=== PATIENT | female | born 1945 | race Caucasian/White ===

== ENCOUNTER → 2020-03-27 | Outpatient (CLI) | payer MEDICARE ==
[~2020-03-27] MED LIST: ASPI81TA45 PO; CALC1CAP8 PO; CHOL10003 PO; DIPH25CA61 PO; ESTR1VAG VG; IPRA15SP NAS; MAGN400T36 PO; MILK150C2 PO; MULT-516 PO; TURMERIC CURCUMIN PO; UBID60CA4 PO
== END | disposition home or self-care (01) ==
LOC: STAR 12:11
PROVIDERS: ATTEND Obstetrics & Gynecology Female Pelvic Medicine and Reconstructive Surgery
DX: Z01.818 Encounter for other preprocedural examination (principal); N81.2 Incomplete uterovaginal prolapse; N39.3 Stress incontinence (female) (male); R10.2 Pelvic and perineal pain
CPT/HCPCS: 93005

== ENCOUNTER 2020-04-03 11:16 | Outpatient (CLI) | payer MEDICARE | END 2020-04-03 23:59 | disposition home or self-care (01) | LOC: STAR 11:16 | PROVIDERS: ATTEND Anesthesiology | DX: Z01.812 Encounter for preprocedural laboratory examination (principal); Z20.828 Contact with and (suspected) exposure to other viral communicable diseases | CPT/HCPCS: 36415; 87635 ==

== ENCOUNTER 2020-04-07 09:28 | Day surgery (SDC) | payer MEDICARE ==
[~2020-04-07] VITALS: Ht 160 cm; Wt 48.0 kg
[~2020-04-07 09:28] MED LIST changes: +BUPIVACAINE/PF 0.25% ONE; +NEOMY/POLYMYXIN B GU IRR. 1 ML ONE
[2020-04-07] MEDS ORDERED: CHLORHEXIDINE 15 ML UDC MM STA (09:35)
[2020-04-07] MEDS ORDERED: CHLORHEXIDINE 15 ML UDC ONE (09:43)
[2020-04-07] MEDS ORDERED: LACTATED RINGERS 1,000 ML IV SCH (10:00)
[2020-04-07] MEDS ORDERED: FENTANYL PF 250 MCG/5ML ONE (11:46)
[2020-04-07] MEDS ORDERED: MIDAZOLAM 1 MG/ML, 2ML ONE (11:46)
[2020-04-07] MEDS ORDERED: DEXAMETHASONE 4 MG/ML, 1ML ONE (11:47)
[2020-04-07] MEDS ORDERED: PROPOFOL 10 MG/ML, 20ML ONE (11:47)
[2020-04-07] MEDS ORDERED: CEFAZOLIN 1,000 MG ONE (11:47)
[2020-04-07] MEDS ORDERED: SUCCINYLCHOLINE 20 MG/ML, 10ML ONE (11:47)
[2020-04-07] MEDS ORDERED: ROCURONIUM 10 MG/ML,10ML ONE (11:54)
[2020-04-07] MEDS ORDERED: ACETAMINOPHEN 500 MG TABLET PO ONE (12:00)
[2020-04-07] MEDS ORDERED: EPHEDRINE 50 MG/ML, 1ML ONE (12:11)
[2020-04-07] MEDS ORDERED: MIDAZOLAM 1 MG/ML, 2ML IV PRN (12:30)
[2020-04-07] MEDS ORDERED: ONDANSETRON 2MG/ML, 2ML IVPush PRN (12:30)
[2020-04-07] MEDS ORDERED: OXYcodone 5 MG/5 ML ORAL.SOL UDC PO PRN (12:30)
[2020-04-07] MEDS ORDERED: hydrALAzine 20 MG/ML, 1ML IV PRN (12:30)
[2020-04-07] MEDS ORDERED: PROMETHAZINE 25 MG/ML, 1ML IVPush PRN (12:30)
[2020-04-07] MEDS ORDERED: DIPHENHYDRAMINE 50 MG/ML, 1ML IVPush PRN (12:30)
[2020-04-07] MEDS ORDERED: DIAZEPAM 5 MG/ML, 2ML IVPush PRN (12:30)
[2020-04-07] MEDS ORDERED: LABETALOL 5MG/ML, 20ML IV PRN (12:30)
[2020-04-07] MEDS ORDERED: FENTANYL PF 100 MCG/2ML IV PRN (12:30)
[2020-04-07] MEDS ORDERED: EPHEDRINE 50 MG/ML, 1ML IVPush PRN (12:30)
[2020-04-07] MEDS ORDERED: ALBUTEROL SULFATE 2.5 MG/3 ML NPPB PRN (12:30)
[2020-04-07] MEDS ORDERED: PROMETHAZINE 12.5 MG SUPP PR PRN (12:30)
[2020-04-07] MEDS ORDERED: HYDROmorphone 1 MG/ML, 1ML INJ IVPush PRN (12:30)
[2020-04-07] MEDS ORDERED: MEPERIDINE/PF 25MG/0.5ML IVPush PRN (12:30)
[2020-04-07] MEDS ORDERED: ONDANSETRON 2MG/ML, 2ML ONE (13:23)
[2020-04-07] MEDS ORDERED: SUGAMMADEX 200 MG/2 ML IVPush ONE (13:23)
[2020-04-07] MEDS ORDERED: OXYcodone 5 MG/5 ML ORAL.SOL UDC ONE (14:07)
[2020-04-07] MEDS ORDERED: FENTANYL PF 100 MCG/2ML ONE (14:07)
== END 2020-04-07 15:40 | disposition home or self-care (01) ==
LOC: OUT 09:28
PROVIDERS: ATTEND Obstetrics & Gynecology Female Pelvic Medicine and Reconstructive Surgery
DX: N81.2 Incomplete uterovaginal prolapse (principal); N39.46 Mixed incontinence; N83.291 Other ovarian cyst, right side; R10.2 Pelvic and perineal pain; G43.909 Migraine, unspecified, not intractable, without status migrainosus; Z79.899 Other long term (current) drug therapy; Z98.51 Tubal ligation status; Z98.890 Other specified postprocedural states
CPT/HCPCS: 57265; 57282; 57288; 58552; 88307; C1771; J0330; J0690; J1100; J2250; J2405; J2704; J3010; J3490; J7120

== ENCOUNTER → 2020-11-11 | Outpatient (CLI) | payer MEDICARE ==
[~2020-11-11] MED LIST changes: -BUPIVACAINE/PF 0.25% ONE; -NEOMY/POLYMYXIN B GU IRR. 1 ML ONE; +PSYL0.527 PO
== END | disposition home or self-care (01) ==
LOC: STAR 10:04
PROVIDERS: ATTEND Obstetrics & Gynecology Female Pelvic Medicine and Reconstructive Surgery
DX: Z01.812 Encounter for preprocedural laboratory examination (principal); Z20.822 Contact with and (suspected) exposure to COVID-19; R10.2 Pelvic and perineal pain; N81.10 Cystocele, unspecified; N81.6 Rectocele; N39.3 Stress incontinence (female) (male)
CPT/HCPCS: 93005; U0003; U0005

== ENCOUNTER 2020-11-17 07:28 | Day surgery (SDC) | payer MEDICARE ==
[~2020-11-17] VITALS: Ht 160 cm; Wt 48.8 kg
[~2020-11-17 07:28] MED LIST changes: +BUPIVACAINE/PF 0.25% ONE; +EPINEPHRINE 1 MG/ML, 1ML ONE; +GENTAMICIN 80 MG/2 ML ONE; +VANCOMYCIN 500 MG ONE
[2020-11-17] MEDS ORDERED: CHLORHEXIDINE 15 ML UDC PO ONE (08:00)
[2020-11-17] MEDS ORDERED: LACTATED RINGERS 1,000 ML IV SCH (08:00)
[2020-11-17] MEDS ORDERED: DIPHENHYDRAMINE 50 MG/ML, 1ML ONE (08:03)
[2020-11-17] MEDS ORDERED: FENTANYL PF 250 MCG/5ML ONE (08:04)
[2020-11-17 08:06] VITALS: BP 109/69
[2020-11-17] MEDS ORDERED: CHLORHEXIDINE 15 ML UDC ONE (08:07)
[2020-11-17] MEDS ORDERED: NEOSTIGMINE 1 MG/ML, 10ML ONE (09:36)
[2020-11-17] MEDS ORDERED: ROCURONIUM 10MG/ML,5ML ONE (09:36)
[2020-11-17] MEDS ORDERED: CEFAZOLIN 1,000 MG ONE (09:36)
[2020-11-17] MEDS ORDERED: PROPOFOL 50 ML ONE (09:36)
[2020-11-17] MEDS ORDERED: ONDANSETRON 2MG/ML, 2ML ONE (09:36)
[2020-11-17] MEDS ORDERED: SUCCINYLCHOLINE 20 MG/ML, 10ML ONE (09:36)
[2020-11-17] MEDS ORDERED: PROPOFOL 10 MG/ML, 20ML ONE (09:36)
[2020-11-17] MEDS ORDERED: DEXAMETHASONE 4 MG/ML, 1ML ONE (09:36)
[2020-11-17] MEDS ORDERED: GLYCOPYRROLATE 0.2MG/1ML, 5ML ONE (09:36)
[2020-11-17] MEDS ORDERED: ONDANSETRON 2MG/ML, 2ML IVPush PRN (10:00)
[2020-11-17] MEDS ORDERED: HALOPERIDOL 5 MG/ML IV PRN (10:00)
[2020-11-17] MEDS ORDERED: hydrALAzine 20 MG/ML, 1ML IV PRN (10:00)
[2020-11-17] MEDS ORDERED: EPHEDRINE 50 MG/ML, 1ML IM PRN (10:00)
[2020-11-17] MEDS ORDERED: METHOCARBAMOL 1,000 MG in DEXTROSE 5% 100 ML IV PRN (10:00)
[2020-11-17] MEDS ORDERED: LORazepam 2 MG/ML, 1ML IVPush PRN (10:00)
[2020-11-17] MEDS ORDERED: PROMETHAZINE 25 MG/ML, 1ML IVPush PRN (10:00)
[2020-11-17] MEDS ORDERED: LABETALOL 5MG/ML, 20ML IV PRN (10:00)
[2020-11-17] MEDS ORDERED: EPHEDRINE 50 MG/ML, 1ML IVPush PRN (10:00)
[2020-11-17] MEDS ORDERED: ACETAMINOPHEN 325 MG TABLET PO PRN (10:00)
[2020-11-17] MEDS ORDERED: FENTANYL PF 100 MCG/2ML IV PRN (10:00)
[2020-11-17] MEDS ORDERED: OXYcodone 5 MG/5 ML ORAL.SOL UDC PO PRN (10:00)
[2020-11-17] MEDS ORDERED: HYDROmorphone 1 MG/ML, 1ML INJ IVPush PRN (10:00)
[2020-11-17] MEDS ORDERED: ACETAMINOPHEN 650 MG/20.3 ML UDC ONE (11:10)
[2020-11-17] MEDS ORDERED: OXYcodone 5 MG/5 ML ORAL.SOL UDC ONE (11:56)
[2020-11-17] MEDS ORDERED: FENTANYL PF 100 MCG/2ML ONE (11:56)
== END 2020-11-17 13:30 | disposition home or self-care (01) ==
LOC: OUT 07:28
PROVIDERS: ATTEND Obstetrics & Gynecology Female Pelvic Medicine and Reconstructive Surgery
DX: N81.2 Incomplete uterovaginal prolapse (principal); N39.46 Mixed incontinence; G43.909 Migraine, unspecified, not intractable, without status migrainosus; Z79.890 Hormone replacement therapy; Z79.899 Other long term (current) drug therapy; Z98.51 Tubal ligation status; Z98.890 Other specified postprocedural states
CPT/HCPCS: 57265; 57282; 57288; C1771; J0171; J0330; J0690; J1100; J1200; J1580; J2405; J2704; J2710; J3010; J3370; J7120